=== PATIENT | female | born 1965 | race Caucasian/White ===

== ENCOUNTER 2017-09-07 14:10 | Emergency (ER) | payer MEDICAID ==
[~2017-09-07] VITALS: Ht 162.6 cm; Wt 67.6 kg
[2017-09-07 14:15] VITALS: Ht 162.6 cm; Wt 67.6 kg
[2017-09-07 17:01] LABS: BASOPHIL % 0.4 % (0-2); RED CELL DISTRIBUTION WIDTH 14.4 % (11.5-14.5)
[2017-09-07 17:04] LABS: PLATELET COUNT 87 x10^3mcL (130-400)
[2017-09-07 17:13] LABS: CALCIUM 8.5 mg/dL (8.5-10.1); CARBON DIOXIDE 29.9 mmol/L (21-32); CHLORIDE SERUM 103 mmol/L (98-107); CREATININE SERUM 0.7 mg/dL (0.6-1.0); GFR1 > 60 mL/min; GLUCOSE SERUM 185 mg/dL (74-106); SODIUM SERUM 139 mmol/L (136-145)
[2017-09-07 17:17] LABS: ALKALINE PHOSPHATASE 153 U/L (46-116); ALT/SGPT 47 U/L (14-59); AST/SGOT 31 U/L (15-37); BILIRUBIN TOTAL 0.9 mg/dL (0.20-1.00); LIPASE 81 IU/L (73-393)
[2017-09-07 17:20] LABS: ALBUMIN 3.1 g/dL (3.4-5.0); TOTAL PROTEIN, SERUM 8.6 g/dL (6.4-8.2)
[2017-09-07 17:32] LABS: AMPHETAMINE QUAL UR NONE DETECTED (NEG <=1000)
[2017-09-07 18:24] LABS: UA SPECIFIC GRAVITY >=1.030 (1.005-1.035); urine erythrocyte NEGATIVE (NEGATIVE)
[2017-09-07 18:28] LABS: microscopic required? YES
[2017-09-07 18:34] VITALS: BP 122/94
== END 2017-09-07 18:34 | disposition home or self-care (01) ==
LOC: ED 14:10
PROVIDERS: Emergency Medicine
DX: K59.00 Constipation, unspecified (principal); E11.9 Type 2 diabetes mellitus without complications; J45.909 Unspecified asthma, uncomplicated; F17.210 Nicotine dependence, cigarettes, uncomplicated; K80.20 Calculus of gallbladder without cholecystitis without obstruction; F12.90 Cannabis use, unspecified, uncomplicated; B19.20 Unspecified viral hepatitis C without hepatic coma; Z71.6 Tobacco abuse counseling
CPT/HCPCS: 99406; J1885

== ENCOUNTER 2018-03-05 10:15 | Inpatient (IN) | payer MEDICAID ==
[~2018-03-05] VITALS: Ht 144.8 cm; Wt 67.2 kg
[2018-03-05 10:18] VITALS: Ht 144.8 cm; Wt 67.2 kg
[2018-03-05 11:27] LABS: UA SPECIFIC GRAVITY 1.025 (1.005-1.035); microscopic required? YES; urine erythrocyte TRACE (NEGATIVE)
[2018-03-05 11:37] LABS: AMPHETAMINE QUAL UR NONE DETECTED (See below)
[2018-03-05 11:53] LABS: CALCIUM 9.1 mg/dL (8.5-10.1); CHLORIDE SERUM 99 mmol/L (98-107); CREATININE SERUM 0.8 mg/dL (0.6-1.0); GFR1 > 60 mL/min; GLUCOSE SERUM 285 mg/dL (74-106); POTASSIUM SERUM 4.2 mmol/L (3.5-5.1); SODIUM SERUM 130 mmol/L (136-145)
[2018-03-05 11:56] LABS: BASOPHIL % 0.3 % (0-2); RED CELL DISTRIBUTION WIDTH 14.5 % (11.5-14.5)
[2018-03-05 11:59] LABS: PLATELET COUNT 125 x10^3mcL (130-400)
[2018-03-05 12:04] LABS: ALKALINE PHOSPHATASE 113 U/L (46-116); ALT/SGPT 45 U/L (14-59); AMYLASE 44 U/L (25-115); AST/SGOT 26 U/L (15-37); BILIRUBIN TOTAL 0.8 mg/dL (0.20-1.00); LIPASE 101 IU/L (73-393); MAGNESIUM 1.7 mg/dL (1.8-2.4); T4(THYROXINE) 6.4 ug/dL (4.7-13.3)
[2018-03-05 12:12] LABS: ALBUMIN 3.2 g/dL (3.4-5.0); TOTAL PROTEIN, SERUM 9.1 g/dL (6.4-8.2)
[2018-03-05] MEDS ORDERED: SEROQUEL200 MG PO (14:20)
[2018-03-05] MEDS ORDERED: LANTUS SOLOS100 U/M1 SQ (14:20)
[2018-03-05] MEDS ORDERED: NOR10T PO (14:21)
[2018-03-05] MEDS ORDERED: CLONAZEPAM1 MG PO (14:21)
[2018-03-05 15:12] VITALS: BP 147/88
[2018-03-05 16:02] LABS: PHOSPHOROUS 4.8 mg/dL (2.5-4.9)
[2018-03-05 16:07] LABS: CHOLESTEROL/HDL RATIO 5.7
[2018-03-05 21:44] VITALS: BP 127/87
[2018-03-06 03:55] VITALS: BP 102/58
[2018-03-06 06:59] LABS: BASOPHIL % 0.3 % (0-2); RED CELL DISTRIBUTION WIDTH 14.5 % (11.5-14.5)
[2018-03-06 07:05] LABS: PLATELET COUNT 115 x10^3mcL (130-400)
[2018-03-06 07:32] LABS: CALCIUM 8.5 mg/dL (8.5-10.1); CHLORIDE SERUM 104 mmol/L (98-107); CREATININE SERUM 0.7 mg/dL (0.6-1.0); GLUCOSE SERUM 90 mg/dL (74-106); POTASSIUM SERUM 3.8 mmol/L (3.5-5.1); SODIUM SERUM 139 mmol/L (136-145)
[2018-03-06 08:53] VITALS: BP 119/81
[2018-03-06 09:55] VITALS: BP 117/75
[2018-03-06 13:35] VITALS: BP 118/78
[2018-03-06 16:25] VITALS: BP 134/87
[2018-03-06 21:27] VITALS: BP 166/98
[2018-03-07 05:45] VITALS: BP 140/85
[2018-03-07 07:11] LABS: CALCIUM 8.7 mg/dL (8.5-10.1); CHLORIDE SERUM 105 mmol/L (98-107); GLUCOSE SERUM 102 mg/dL (74-106); POTASSIUM SERUM 3.7 mmol/L (3.5-5.1); SODIUM SERUM 140 mmol/L (136-145)
[2018-03-07 07:14] LABS: CREATININE SERUM 0.7 mg/dL (0.6-1.0); GFR1 > 60 mL/min
[2018-03-07 07:48] LABS: BASOPHIL % 0.4 % (0-2); PLATELET COUNT 125 x10^3mcL (130-400); RED CELL DISTRIBUTION WIDTH 14.7 % (11.5-14.5)
[2018-03-07 09:57] VITALS: BP 132/78
[2018-03-07] MEDS ORDERED: OMEPRAZOLE20 M4 PO (12:28)
[2018-03-07] MEDS ORDERED: AMOXICILLIN500 M1 PO (12:29)
[2018-03-07] MEDS ORDERED: CLARITHROMYCIN500 M1 PO (12:30)
[2018-03-07] MEDS ORDERED: LAC PO (12:31)
[2018-03-07 12:32] VITALS: BP 132/78
[2018-03-07 12:44] VITALS: BP 114/63
== END 2018-03-07 13:57 | disposition home or self-care (01) | DRG 241 ==
LOC: ED 10:15 → DU 13:48
PROVIDERS: Emergency Medicine; Family Medicine; Family Medicine Sports Medicine; Internal Medicine Gastroenterology
PROC: 0DB68ZX Excision of Stomach, Via Natural or Artificial Opening Endoscopic, Diagnostic (ICD-10-PCS; principal; 2018-03-06 08:30)
PROC: 0DBN8ZZ Excision of Sigmoid Colon, Via Natural or Artificial Opening Endoscopic (ICD-10-PCS; 2018-03-07 08:30)
DX: K29.70 Gastritis, unspecified, without bleeding (principal); A04.8 Other specified bacterial intestinal infections; E87.2 Acidosis; E44.0 Moderate protein-calorie malnutrition; E11.65 Type 2 diabetes mellitus with hyperglycemia; E87.1 Hypo-osmolality and hyponatremia; Q43.8 Other specified congenital malformations of intestine; K74.60 Unspecified cirrhosis of liver; K74.69 Other cirrhosis of liver; E83.42 Hypomagnesemia; F31.9 Bipolar disorder, unspecified; E78.5 Hyperlipidemia, unspecified; B18.2 Chronic viral hepatitis C; D12.5 Benign neoplasm of sigmoid colon; F12.10 Cannabis abuse, uncomplicated; Z79.4 Long term (current) use of insulin; F17.210 Nicotine dependence, cigarettes, uncomplicated; T40.601A Poisoning by unspecified narcotics, accidental (unintentional), initial encounter; K59.03 Drug induced constipation; Y92.018 Other place in single-family (private) house as the place of occurrence of the external cause; F15.21 Other stimulant dependence, in remission; Z68.30 Body mass index [BMI] 30.0-30.9, adult
CPT/HCPCS: 36600; 43235; 45378; 83880; 99406; G0480; J1200; J1610; J1815; J2250; J2310; J2405; J3010; J3490; J7030; Q0092; Q9967

== ENCOUNTER 2018-05-07 07:30 | Emergency (ER) | payer MEDICAID ==
[~2018-05-07] VITALS: Ht 144.8 cm; Wt 68.5 kg
[~2018-05-07 07:30] MED LIST: AMOXICILLIN500 M1 PO; CLARITHROMYCIN500 M1 PO; CLONAZEPAM1 MG PO; LAC PO; LANTUS SOLOS100 U/M1 SQ; NOR10T PO; OMEPRAZOLE20 M4 PO; SEROQUEL200 MG PO
[2018-05-07 07:51] VITALS: BP 177/98; Ht 144.8 cm; Wt 68.5 kg
== END 2018-05-07 09:46 | disposition home or self-care (01) ==
LOC: ED 07:30
DX: S83.92XA Sprain of unspecified site of left knee, initial encounter (principal); E11.9 Type 2 diabetes mellitus without complications; J45.909 Unspecified asthma, uncomplicated; H72.91 Unspecified perforation of tympanic membrane, right ear; X58.XXXA Exposure to other specified factors, initial encounter; Y93.89 Activity, other specified; Y92.89 Other specified places as the place of occurrence of the external cause; Y99.8 Other external cause status
CPT/HCPCS: Q0092

== ENCOUNTER 2018-09-18 11:21 | Emergency (ER) | payer BC ==
[~2018-09-18] VITALS: Ht 147.3 cm; Wt 67.8 kg
[2018-09-18 12:06] VITALS: Ht 147.3 cm; Wt 67.8 kg
[2018-09-18 15:52] VITALS: BP 129/64
== END 2018-09-18 15:52 | disposition home or self-care (01) ==
LOC: ED 11:21
DX: S80.02XA Contusion of left knee, initial encounter (principal); W18.39XA Other fall on same level, initial encounter; Y93.89 Activity, other specified; Y92.89 Other specified places as the place of occurrence of the external cause; Y99.8 Other external cause status

== ENCOUNTER 2019-04-25 14:03 | Emergency (ER) | payer BC ==
[~2019-04-25] VITALS: Ht 147.3 cm; Wt 68.9 kg
[2019-04-25 14:38] VITALS: Ht 147.3 cm; Wt 68.9 kg
[2019-04-25 15:49] VITALS: BP 104/70
== END 2019-04-25 15:49 | disposition home or self-care (01) ==
LOC: ED 14:03
DX: L02.511 Cutaneous abscess of right hand (principal); J45.909 Unspecified asthma, uncomplicated; I10 Essential (primary) hypertension; E11.9 Type 2 diabetes mellitus without complications; F32.9 Major depressive disorder, single episode, unspecified; F20.9 Schizophrenia, unspecified; Z98.890 Other specified postprocedural states
CPT/HCPCS: 82962; A4570; J2001

== ENCOUNTER 2019-08-07 12:07 | Emergency (ER) | payer BC ==
[~2019-08-07] VITALS: Ht 144.8 cm; Wt 68.5 kg
[2019-08-07 12:22] VITALS: Ht 144.8 cm; Wt 68.5 kg
[2019-08-07 13:07] LABS: UA SPECIFIC GRAVITY >=1.030 (1.005-1.035); microscopic required? YES; urine erythrocyte 2+ (NEGATIVE)
[2019-08-07 13:27] LABS: BASOPHIL % 0.3 % (0-2); PLATELET COUNT 116 x10^3mcL (130-400); RED CELL DISTRIBUTION WIDTH 14.4 % (11.5-14.5)
[2019-08-07 13:33] LABS: CALCIUM 8.3 mg/dL (8.5-10.1); CARBON DIOXIDE 28.6 mmol/L (21-32); CREATININE SERUM 1.1 mg/dL (0.6-1.0); POTASSIUM SERUM 4.4 mmol/L (3.5-5.1)
[2019-08-07 13:37] LABS: BILIRUBIN TOTAL 0.82 mg/dL (0.20-1.00)
[2019-08-07 13:43] LABS: ALBUMIN 3.1 g/dL (3.4-5.0); TOTAL PROTEIN, SERUM 8.3 g/dL (6.4-8.2)
[2019-08-07 13:50] VITALS: BP 162/99
== END 2019-08-07 14:11 | disposition home or self-care (01) ==
LOC: ED 12:07
PROVIDERS: Emergency Medicine
DX: K29.70 Gastritis, unspecified, without bleeding (principal); E11.65 Type 2 diabetes mellitus with hyperglycemia; J45.909 Unspecified asthma, uncomplicated; I10 Essential (primary) hypertension; F32.9 Major depressive disorder, single episode, unspecified
CPT/HCPCS: 36415; 82962; J7030

== ENCOUNTER 2019-08-27 11:05 | Emergency (ER) | payer BC ==
[~2019-08-27] VITALS: Ht 149.9 cm; Wt 70.8 kg
[2019-08-27 11:11] VITALS: Ht 149.9 cm; Wt 70.8 kg
[2019-08-27 12:22] LABS: CHLORIDE SERUM 99 mmol/L (98-107); CREATININE SERUM 0.8 mg/dL (0.6-1.0); GFR1 > 60 mL/min; GLUCOSE SERUM 265 mg/dL (74-106); POTASSIUM SERUM 4.6 mmol/L (3.5-5.1); SODIUM SERUM 136 mmol/L (136-145)
[2019-08-27 12:27] LABS: ALKALINE PHOSPHATASE 127 U/L (46-116); ALT/SGPT 33 U/L (14-59); AST/SGOT 26 U/L (15-37); BILIRUBIN TOTAL 0.7 mg/dL (0.20-1.00)
[2019-08-27 12:28] LABS: ALBUMIN 3.2 g/dL (3.4-5.0); TOTAL PROTEIN, SERUM 8.6 g/dL (6.4-8.2)
[2019-08-27 12:34] LABS: FREE THYROXINE INDEX 2.2 ug/dL (1.4-4.5); T4(THYROXINE) 6.6 ug/dL (4.7-13.3)
[2019-08-27 12:35] LABS: T3 TOTAL 1.07 ng/mL
[2019-08-27 13:12] LABS: FREE T4 0.77 ng/dL (0.76-1.46)
[2019-08-27 13:35] LABS: BASOPHIL % 0.3 % (0-2); PLATELET COUNT 135 x10^3mcL (130-400); RED CELL DISTRIBUTION WIDTH 14.2 % (11.5-14.5)
[2019-08-27 14:50] VITALS: BP 165/93
== END 2019-08-27 14:50 | disposition home or self-care (01) ==
LOC: ED 11:05
PROVIDERS: Emergency Medicine
DX: I16.0 Hypertensive urgency (principal); E11.65 Type 2 diabetes mellitus with hyperglycemia; J45.909 Unspecified asthma, uncomplicated; F17.210 Nicotine dependence, cigarettes, uncomplicated; G44.209 Tension-type headache, unspecified, not intractable; Z98.890 Other specified postprocedural states
CPT/HCPCS: 36415; 84439; 99406; Q0092

== ENCOUNTER 2020-05-29 07:24 | Emergency (ER) | payer BC ==
[~2020-05-29] VITALS: Ht 144.8 cm; Wt 68.0 kg
[2020-05-29 07:31] VITALS: Ht 144.8 cm; Wt 68.0 kg
[2020-05-29 10:01] VITALS: BP 187/102
== END 2020-05-29 10:01 | disposition home or self-care (01) ==
LOC: ED 07:24
DX: M54.5 Low back pain (principal); M54.6 Pain in thoracic spine; J45.909 Unspecified asthma, uncomplicated; I10 Essential (primary) hypertension; E11.9 Type 2 diabetes mellitus without complications
CPT/HCPCS: 72072; J1885